=== PATIENT | female | born 1980 ===

== ENCOUNTER 2025-09-13 07:00 | Day surgery (SDC) | payer OTHER ==
[2025-09-06 09:11] VITALS: BP 131/91
[2025-09-06 09:32] LABS: BASO % 0.8 % (0.1-1.2); EOS # 0.26 (0.04-0.54); EOS % 3.3 % (0.7-7.0); LYMPH # 2.23 (1.18-3.74); LYMPH % 28.0 % (19.3-53.1); MEAN PLATELET VOLUME 9.70 fl (9.4-12.4); MONO # 0.47 (0.24-0.82); MONO % 5.9 % (4.7-12.5); NEUT # 4.90 (1.56-6.13); NEUT % 61.5 % (34.0-71.1); RED CELL DISTRIBUTION WIDTH 19.7 % (11.6-14.4); URINE APPEARANCE Clear; URINE BILIRRUBIN Negative (NEGATIVE); URINE BLOOD Negative; URINE COLOR Yellow; URINE GLUCOSE Negative (NEGATIVE); URINE KETONE Negative (NEGATIVE); URINE LEUKOCYTE Trace; URINE NITRATE Negative; URINE PROTEIN Negative (NEGATIVE); URINE UROBILINOGEN 0.2 E.U./dl
[2025-09-06 09:36] LABS: URINE BACTERIA 246.9 uL (0.0-1933); URINE EPITHELIAL CELLS 8.4 uL (0.0-38.8); URINE RBC 11.7 uL (0.0-20.8); URINE WBC 24.1 uL (0.0-23.2)
[2025-09-06 09:50] LABS: INR 0.98
[2025-09-06 10:16] LABS: ALT/SGPT 24.0 U/L (12-78); AST/SGOT 8.0 U/L (15-37); BILIRUBIN TOTAL 0.24 mg/dL (0.3-1.2); BUN CREA RATIO 19.0 (7.0-25.0); CREATININE SERUM 0.67 mg/dL (0.55-1.02); GFR 95.61; GLOBULINA 3.5 G/DL (2.4-3.5); GLUCOSE FASTING 151.0 mg/dL (65-100); OSMOLALITY SERUM 286.0 MOSM/KG (275-295); TSH 1.72 uIU/mL (0.358-3.74)
[2025-09-06 10:28] LABS: URINE CAST 0.28 uL (0.0-1.40)
[~2025-09-13 07:00] MED LIST: CEFOXITIN SODIUM 2,000 MG VIAL IV ONE; CLARITIN5 MG/5 ML; LEVOXYL75 MCG; METFORMIN HCL500 M3; POVIDONE-IODINE 118 ML BOTT TOP ONE
[2025-09-13] MEDS ORDERED: NAPR500T14 PO (08:44)
[2025-09-13] MEDS ORDERED: AVIDOXY100 MG PO (08:44)
[2025-09-13] MEDS ORDERED: PROMETHAZINE HCL 50 MG/ML AMPUL IM ONE (08:45)
[2025-09-13] MEDS ORDERED: MORPHINE SULFATE 4 MG/ML VIAL IV PRN (08:45)
== END 2025-09-13 14:10 | disposition home or self-care (01) ==
LOC: CIR.AMB 07:00
PROVIDERS: ATTEND Obstetrics & Gynecology
DX: D25.0 Submucous leiomyoma of uterus (principal); N95.0 Postmenopausal bleeding; N84.0 Polyp of corpus uteri